=== PATIENT | female | born 1970 | race Caucasian/White ===

== ENCOUNTER 2016-11-17 18:20 | Emergency (ER) | payer OTHER ==
[~2016-11-17] VITALS: Ht 160 cm; Wt 44.5 kg
--- NOTE | ~2016-11-17 | CR72 ---
[facility] A Service of [facility] RADIOLOGY TEXT RESULTS PATIENT: ARASH LEE LOCATION: [facility] : 74 UNIT #: [id number] AGE: [address]: Foreign Small MD SEX: F ORDER DR: [id number] [facility] [address] [place], [place] [address] [id number] E MR#: [id number] #: [id number] NAME: ARASH LEE : 1970 SEX: F STUDY DATE/TIME: 11/17/2016 18:47 UNIT: [facility] ROOM: STUDY DESCRIPTION: CR Chest Single View Portable Attending Physician: Foreign Small M.D. Ordering Physician: Foreign Small M.D. Primary Care Physician: Primary Care Physician No MEDICAL IMAGING REPORT This report is preliminary unless electronic signature is present EXAM Single view chest INDICATIONS Shortness of air for 1 day. FINDINGS Single AP view of the chest without comparison. The heart mediastinal contours normal. Lungs are clear. No pleural effusion. IMPRESSION No acute findings. Dictated by... Yandel Jerez M.D. THIS IS AN ELECTRONICALLY VERIFIED REPORT Yandel Jerez M.D. at 11/18/2016 8:13 AM ANUSHA/fleipe TD: 11/18/2016 07:37 JOB #: [id number] MEDICAL IMAGING REPORT Page 1 of 1 COPY
--- NOTE | ~2016-11-17 | EKG ---
PATIENT: ARASH LEE UNIT #: [id number] Ventricular Rate: 93 BPM Atrial Rate: 93 BPM P-R Interval: 136 ms QRS Duration: 96 ms Q-T Interval: 370 ms QTC Calculation(Bezet): 460 ms P [place]: 61 degrees Calculated R [place]: 57 degrees Calculated T [place]: 49 degrees Diagnosis Line: Normal sinus rhythm Diagnosis Line: Incomplete right bundle branch block Diagnosis Line: Borderline ECG Diagnosis Line: No previous ECGs available Diagnosis Line: Confirmed by ILENE KOHLER MD ([id number]) on Diagnosis Line: 11/18/2016 8:07:26 AM INTERPRETING MD: EDITA ROLAND
[2016-11-17 18:56] LABS: BASOPHIL% 0.6 % (0-2.5); EOSINOPHIL# 0.1 X10e3 (0-0.7); EOSINOPHIL% 0.8 % (0.0-7.0); HEMATOCRIT 38.6 % (35.0-45.0); HEMOGLOBIN 12.7 gm/dL (12.0-16.0); LYMPHOCYTE# 2.2 X10e3 (1.0-3.5); LYMPHOCYTE% 31.2 % (17.0-45.0); MEAN CELL VOLUME 94.1 FL (83-96); MEAN CORPUSCULAR HEMOGLOBIN 31.1 PG (28-34); MEAN PLATELET VOLUME 7.9 FL (6.5-11.5); MONOCYTE# 0.9 X10e3 (0-1.0); MONOCYTE% 12.6 % (3.0-12.0); NEUTROPHIL# 3.9 X10e3 (1.5-7.1); NEUTROPHIL% 54.8 % (40-75); PLATELET COUNT 262 X10e3 (140-420); RED BLOOD COUNT 4.09 X10e (3.90-5.30); RED CELL DISTRIBUTION WIDTH 13.3 % (11.0-15.5); WHITE BLOOD COUNT 7.1 X10e3 (4.0-10.5)
[2016-11-17 18:59] LABS: DIFF IND NO
[2016-11-17 19:20] LABS: ALBUMIN SERUM 4.2 g/dL (3.5-5.0); ALKALINE PHOSPHATASE 65 U/L (32-92); ALT (SGPT) 27 U/L (10-40); AST (SGOT) 41 U/L (10-42); BILIRUBIN,TOTAL 0.1 mg/dL (0.2-2.0); BLOOD UREA NITROGEN 6 mg/dL (9-23); BUN/CREATININE RATIO 8.57; CALCIUM SERUM 8.8 mg/dL (8.4-10.2); CARBON DIOXIDE 28 mmol/L (22-31); CHLORIDE 105 mmol/L (100-111); CREATININE SERUM 0.7 mg/dL (0.6-1.4); GLOM FILT RATE Estimated 106.1 mL/min (>60); GLUCOSE FASTING 93 mg/dL (70-110); POTASSIUM 3.8 mmol/L (3.5-5.1); PROTEIN TOTAL SERUM 7.8 g/dL (6.0-8.3); SODIUM 140 mmol/L (135-145)
[2016-11-17 19:25] LABS: BILIRUBIN, DIRECT <0.1 mg/dL (0.0-0.2)
[2016-11-17 19:59] LABS: POC - CKMB <1.0 ng/mL (0.0-7.9); POC - TROPONIN <0.05 ng/mL (<=0.05)
== END 2016-11-17 20:14 | disposition home or self-care (01) ==
LOC: CED 18:20
PROVIDERS: Emergency Medicine
DX: R09.1 Pleurisy (principal); R56.9 Unspecified convulsions; F17.200 Nicotine dependence, unspecified, uncomplicated; Z86.73 Personal history of transient ischemic attack (TIA), and cerebral infarction without residual deficits; Z98.890 Other specified postprocedural states
CPT/HCPCS: 36415; 71010; 80048; 80076; 82553; 84484; 85025; 85379; 93005; 99285

== ENCOUNTER 2016-11-19 05:27 | Observation (INO) | payer OTHER ==
[~2016-11-19] VITALS: Ht 160 cm; Wt 47.2 kg
--- NOTE | ~2016-11-19 | DS ---
Unit #: [id number] #: [id number] Patient: ARASH LEE [id number] [address] [address] [id number] I MR#: [id number] NAME: ARASH LEE ROOM: 57 Age: 45 Sex: F Admission Date: 11/19/2016 : 1970 Discharge Date: 11/20/2016 Attending Physician: Nellie Malhotra M.D. Primary Care Physician: Primary Care Physician No DISCHARGE SUMMARY PRIMARY CARE PHYSICIAN None. PRINCIPAL DIAGNOSES 1. Atypical chest pain likely muscular in origin. 2. Left and right lower lobe nodules of undetermined etiology. 3. Hyperglycemia with pending hemoglobin A1c. 4. Transaminitis question steroid induced. 5. Steroid-induced leukocytosis. 6. Underweight. 7. Mild protein malnutrition. 8. Tobaccoism. 9. History of seizure in 07/2016. CONSULTANTS Dr. Krishnan, Pulmonology. PROCEDURES 1. Chest x-ray on 11/19/2016 with blunting of left costophrenic angle. 2. Lower extremity venous Doppler, which was negative for DVT on the left. 3. CT of the chest with contrast on 11/19/2016 with a soft tissue nodule in the posterior lateral left lung base abutting the posterior pleura measuring 1.4 x 1.2 x 1.5 cm. Lungs are otherwise clear. 4. CT angiogram of the chest on 11/19/2016 again without evidence of PE. There was a subpleural nodule in the posterior lateral left lower lobe measuring 1.7 x 0.9 cm and over subpleural nodule in the lateral right lower lobe measuring 2.3 x 0.9 cm, these may be infectious or post inflammatory and both indeterminate. No evidence of adenopathy. CLINICAL HISTORY AND HOSPITAL COURSE Ms. Park is a nice 45-year-old female, who presents to the emergency department with mild shortness of breath and chest pain described as sharp, which she noted after swimming last with her daughter. Due to her shortness of breath, she was seen in the emergency department with a negative workup and discharged home. However, the pain persisted and she still got short of breath and thus she presented to the emergency department. CT scan revealed a left subpleural nodule and she was admitted in observation for evaluation. The patient underwent repeat CT with PE protocol which was negative for PE, but has revealed both right and left nodule . She denies any cough now. Denies any shortness of breath. Denies any fever. She states her pain is significantly improved after some Toradol and she thinks her pain Unit #: [id number] #: [id number] Patient: ARASH LEE might be related to swimming particularly given its presence, more so on the lateral portion of the chest. She does smoke and states she smoked for quite some time. We did discuss tobacco cessation. She denies any fever during hospitalization nor she had any evidence of leukocytosis until after a dose of Solu-Medrol. These nodules may indeed be infectious. I am going to complete a course of antibiotics. I am also going to have Dr. Krishnan evaluate the patient, so the lung nodules can be followed up on an outpatient basis. The patient did have some mild transaminitis again after dosing of steroids. She has also had some hyperglycemia both before and after steroid dosing. Hemoglobin A1c is pending. I am going to repeat CMP in 1 week to follow up the transaminitis which I think might be med effect and/or perhaps infectious in etiology. She did not have any nausea, vomiting, diarrhea, or any abdominal pain. I am awaiting Dr. Krishnan's evaluation, but I anticipate we will discharge home after his evaluation. DISCHARGE CONDITION Stable. DISCHARGE STATUS Discharged to home. DISCHARGE MEDICATIONS Levaquin 750 mg p.o. daily for 1 week, ibuprofen over the counter 2 to 3 tablets p.o. q.8 hours p.r.n. for pain. DISCHARGE INSTRUCTIONS The patient was instructed to refrain from any further tobacco use. She can increase her activity as tolerated. She can return to work tomorrow. FOLLOWUP The patient will follow up with Dr. Krishnan on an outpatient basis for further evaluation of her lung nodules. Get CMP in 1 week with results faxed to my office. Dictated by... Nellie Malhotra M.D. EARL/rafaela TD: 11/23/2016 01:02 JOB #: [id number] DISCHARGE SUMMARY Page 1 of 1 X Nellie Malhotra MD X DISCHARGE SUMMARY
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
--- NOTE | ~2016-11-19 | EKG ---
PATIENT: ARASH LEE UNIT #: [id number] Ventricular Rate: 88 BPM Atrial Rate: 88 BPM P-R Interval: 140 ms QRS Duration: 90 ms Q-T Interval: 374 ms QTC Calculation(Bezet): 452 ms P [place]: 70 degrees Calculated R [place]: 43 degrees Calculated T [place]: 40 degrees Diagnosis Line: Normal sinus rhythm Diagnosis Line: Normal ECG Diagnosis Line: When compared with ECG of 17-NOV-2016 18:42, Diagnosis Line: No significant change was found Diagnosis Line: Confirmed by ILENE KOHLER MD ([id number]) on Diagnosis Line: 11/20/2016 8:28:52 AM INTERPRETING MD: EDITA ROLAND
--- NOTE | ~2016-11-19 | US85 ---
[facility] A Service of [facility] & [facility] RADIOLOGY TEXT RESULTS PATIENT: ARASH LEE LOCATION: [facility] : 74 UNIT #: [id number] AGE: [address]: Lacy Carrington MD SEX: F ORDER DR: [id number] [facility] [address] [place], [place] [address] [id number] I MR#: [id number] Acc #: [id number] NAME: ARASH LEE : 1970 SEX: F STUDY DATE/TIME: 11/19/2016 8:52 [facility] RO[facility] 6[address]21 STUDY DESCRIPTION: US LE Veins Unilat or Ltd Stdy Attending Physician: Lacy Carrington M.D. Ordering Physician: Marychuy Keene P.A.-C. Primary Care Physician: No Primary Care Physician MEDICAL IMAGING REPORT This report is preliminary unless electronic signature is present EXAM Left lower extremity venous Doppler. HISTORY Left calf pain x2 days. TECHNIQUE Venous ultrasound examination of the left lower extremity was performed using grayscale, spectral Doppler and color flow Doppler imaging. FINDINGS The examination is negative. There is no evidence of left lower extremity deep venous thrombus from the groin to the lower calf. Visualized greater saphenous vein is also patent. IMPRESSION Negative examination. No evidence of left lower extremity DVT. Dictated by... Anita Jackson M.D. THIS IS AN ELECTRONICALLY VERIFIED REPORT Anita Jackson M.D. at 11/19/2016 3:54 PM Matthew TD: 11/19/2016 15:09 JOB #: [id number] MEDICAL IMAGING REPORT Page 1 of 1 COPY
--- NOTE | ~2016-11-19 | CT16 ---
[facility] A Service of [facility] & [facility] RADIOLOGY TEXT RESULTS PATIENT: ARASH LEE LOCATION: [facility] 575-01 : [birth year] UNIT #: [id number] AGE: [address]: Nellie Malhotra MD SEX: F ORDER DR: [id number] [facility] [address] [place], [place] [address] [id number] I MR#: [id number] Acc #: [id number] NAME: ARASH LEE : 1970 SEX: F STUDY DATE/TIME: 11/19/2016 14:42 UNIT: [facility] ROOM: [facility] STUDY DESCRIPTION: CT Angio Chest for PE Attending Physician: Lacy Carrington M.D. Ordering Physician: Lacy Carrington M.D. Primary Care Physician: No Primary Care Physician MEDICAL IMAGING REPORT This report is preliminary unless electronic signature is present EXAM CT angiogram chest with IV contrast HISTORY Shortness of air. Chest pain for 2 days. TECHNIQUE IV contrast and CT angiogram chest was performed with 3-D reconstructions. The exam is compared to conventional CT chest with IV contrast earlier today. This CT exam was performed with one or more of the following radiation dose reduction techniques: automatic exposure control, adjustment of mA and/or kV according to patient size, and iterative reconstruction. FINDINGS There is no evidence of pulmonary embolus. Normal-caliber pulmonary arteries. Normal caliber thoracic aorta. No adenopathy. There is an oval peripheral subpleural patchy nodule in the posterolateral left lower lobe measuring 0.9 cm x 1.7 cm, and a similar oval subpleural patchy nodule in the inferolateral right lower lobe measuring 2.37 x 0.9 cm, very similar to findings on CT earlier today. These could be infectious or inflammatory or postinflammatory. There is also mild linear atelectasis in the posterior lower lobes. Consider followup CT chest in 3 months to evaluate for stability or resolution. No pleural effusions. IMPRESSION 1. No evidence of pulmonary embolus. 2. Oval subpleural nodule in the posterolateral left lower lobe measures 1.7 cm x 0.9 cm and oval subpleural nodule in the lateral right lower lobe measures 2.3 cm x 0.9 cm. These could be infectious or inflammatory or postinflammatory but are technically STS. [facility] A Service of [facility] RADIOLOGY TEXT RESULTS PATIENT: ARASH LEE LOCATION: [facility] 575-01 : 74 UNIT #: [id number] AGE: [address]: Nellie Malhotra MD SEX: F ORDER DR: indeterminate. Followup chest CT in 3 months is recommended to evaluate for stability or resolution. 3. Mild linear atelectasis or scarring in the posterior lower lobes. 4. No adenopathy. Dictated by... Obed Morrison M.D. THIS IS AN ELECTRONICALLY VERIFIED REPORT Obed Morrison M.D. at 11/20/2016 11:30 PM BENTON/claudia TD: 11/19/2016 23:23 JOB #: [id number] MEDICAL IMAGING REPORT Page 1 of 1 COPY
--- NOTE | ~2016-11-19 | CR63 ---
[facility] A Service of [facility] & [facility] RADIOLOGY TEXT RESULTS PATIENT: ARASH LEE LOCATION: [facility] : 74 UNIT #: [id number] AGE: [address]: Lacy Carrington MD SEX: F ORDER DR: [id number] [facility] [address]. [place], [place] [address] [id number] I MR#: [id number] Acc #: [id number] NAME: ARASH LEE : 1970 SEX: F STUDY DATE/TIME: 11/19/2016 7:55 [facility] ROOM: 01952 STUDY DESCRIPTION: CR Chest 2 View Attending Physician: Lacy Carrington M.D. Ordering Physician: Bay Us M.D. Primary Care Physician: Primary Care Physician No MEDICAL IMAGING REPORT This report is preliminary unless electronic signature is present EXAM Chest x-ray 11/19 INDICATIONS Shortness of air over the last 2 days. History of smoking. FINDINGS Two views of the chest are compared with 11/17/2016. Lungs are clear. Cardiac and mediastinal contours are normal. No pneumothorax is seen. Blunting of the left costophrenic angle may reflect a trace amount of left-side pleural fluid. IMPRESSION Blunting of the left costophrenic angle suggests a trace amount of left pleural fluid. Chest x-ray is otherwise negative. Dictated by... Mike Valero Jr., M.D. THIS IS AN ELECTRONICALLY VERIFIED REPORT Mike Valero Jr., M.D. at 11/19/2016 3:49 PM STARLA/felipe TD: 11/19/2016 14:15 JOB #: [id number] MEDICAL IMAGING REPORT Page 1 of 1 COPY
--- NOTE | ~2016-11-19 | CT55 ---
[facility] A Service of [facility] RADIOLOGY TEXT RESULTS PATIENT: ARASH LEE LOCATION: [facility] : 74 UNIT #: [id number] AGE: [address]: Marychuy Keene SEX: F ORDER DR: [id number] [facility] [address] [place], [place] [address] [id number] E MR#: [id number] Acc #: [id number] NAME: ARASH LEE : 1970 SEX: F STUDY DATE/TIME: 11/19/2016 09:56 UNIT: [facility] ROOM: STUDY DESCRIPTION: CT Chest W Con Attending Physician: Marychuy Keene P.A.-C. Ordering Physician: Marychuy Keene P.A.-C. Primary Care Physician: Primary Care Physician No MEDICAL IMAGING REPORT This report is preliminary unless electronic signature is present EXAM CT chest with contrast, 11/19/2016 09:56 hours HISTORY 45-year-old woman with shortness of air and bilateral rib pain for 2 days. No reported injury. COMPARISON Chest film, 11/19/[address] images were obtained from the thoracic inlet through the adrenal glands. Sagittal and coronal reconstructions were performed. Contrast was Isovue-370, 70 mL IV. Total exam DLP 357 mGy-cm. This CT exam was performed with one or more of the following radiation dose reduction techniques: automatic exposure control, adjustment of mA and/or kV according to patient size, and iterative reconstruction. FINDINGS Images through the thoracic inlet demonstrate no thyroid lesion or lymphadenopathy. Images through the chest demonstrate well opacified aorta which is normal in caliber. There is no dissection. Pulmonary arteries appear normal in size and are normally opacified centrally. This is not a PE protocol examine and opacification of the peripheral pulmonary arteries is not optimized. There is no mediastinal or hilar adenopathy. There is no pericardial or pleural fluid. The lungs demonstrate a few scattered calcified granulomata. There is a pleural-based nodular density at the left lung base measuring 1.4 x 1.2 cm. It is not clear whether this is primarily a pulmonary nodule abutting the pleura or primarily a pleural nodule. This likely accounts for the STS. [facility] A Service of [facility] RADIOLOGY TEXT RESULTS PATIENT: ARASH LEE LOCATION: [facility] : 74 UNIT #: [id number] AGE: [address]: Marychuy Keene SEX: F ORDER DR: blunting of the left costophrenic angle seen on today's chest x-ray. Differential considerations would include an inflammatory or infectious nodule. Peripheral infarct is felt less likely as is malignancy given the patient's age. Limited views through the upper abdomen demonstrate diffuse fatty change in the liver. The adrenal glands are normal. IMPRESSION There is a soft tissue nodule at the posterolateral left lung base abutting the posterior pleura measuring 1.4 x 1.2 x 1.5 cm. This likely accounts for the blunting of the costophrenic angle seen on chest film. It is not clear whether this is primarily a pulmonary nodule abutting the pleura or primarily a pleural nodule. The more acute angles favor that that this is primarily pulmonary. The lungs are otherwise clear and there is no adenopathy. Differential considerations would include an infectious or post infectious change. Pulmonary infarct or malignancy are felt less likely. The central pulmonary arteries are well opacified with contrast and show no evidence of emboli. This is not a PE protocol exam and opacification of the peripheral vessels is not optimized. Suggest clinical correlation. Suggest short-interval followup CT to reassess this area in 3-4 months. No contrast would be required in reassessment of this nodule. STAT * RESULT Dictated by... Yolande Corona M.D. THIS IS AN ELECTRONICALLY VERIFIED REPORT Yolande Corona M.D. at 11/19/2016 12:03 PM Rock TD: 11/19/2016 10:39 JOB #: [id number] MEDICAL IMAGING REPORT Page 1 of 1 COPY
--- NOTE | ~2016-11-19 | A ---
[facility] DATE: 11/20/16 Patient: ARASH LEE Physician: SHIRA Address: [address] Room/Bed: [address] [place] [address], Zip: [place] [address] Admit Date: 11/19/16 Date of : [birth year] Height: 5 3 Weight: 104 47.2 NUTRITIONAL ASSESSMENT: REASON: Low BMI 45 y/o female admitted for long nodule, SOA PMH: seizure, pulmonary embolism Anthropometrics: ht: 5'3" wt: 104# (47 kg) BMI 18.4, 90%IBW Labs: Glu 133, Alb 3.4, AST 392, ALT 286 Meds: NaCl, zithromax, zofran I/O & Bowel function: 1700/503 Skin Integrity: no issues, no edema. Estimated Nutrition Needs: Increased 2' low BMI Assessment: Chart reviewed, events noted. Pt seen for low BMI. RD sourcing intern visited pt at bedside. Pt reports current weight of 104# as her normal weight, and reports no recent weight loss. Pt says she has a good appetite. 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 She reports drinking protein shakes at home to increase her protein and calorie intake. Pt was agreeable to Magic Cup with dinner. RD sourcing intern encouraged adequate PO intake of meals and supplements. No questions at this time. RD will continue to follow. Dx: Underweight r/t lifestyle AEB pt report, low BMI Intervention: 1. Regular diet 2. Magic Cup with dinner Monitoring, Evaluation and Goals: 1. Weight; prevent unintentional weight loss, promote healthy weight gain and maintenance 2. Intake; consume >50% of all meals and supplements Recommendations: 1. Continue current regular diet + Magic Cup with dinner. 2. Encourage adequate PO intake. Pt is mildly compromised nutritionally [facility] Therapy DATE: 11/20/16 Patient: ARASH LEE Physician: SHIRA Address: [address] Room/Bed: [address] [place] [address], Zip: [place] [address] Admit Date: 11/19/16 Date of : [birth year] Height: 5 3 Weight: 104 47.2 Respectfully, KYLE ROSENTHAL, internal grinder Betzaida Marrufo MS, RD, LD [employer] [facility] cc: client file
--- NOTE | ~2016-11-19 | HP ---
Unit #: [id number] #: [id number] Patient: ARASH LEE [id number] [address] [place], [place] [address] [id number] MR#: [id number] NAME: ARASH LEE ROOM: Age: 45 Sex: F Admission Date: 11/19/2016 : 1970 Attending Physician: Marychuy Keene P.A.-C. Primary Care Physician: No Primary Care Physician HISTORY AND PHYSICAL CHIEF COMPLAINT Short of air. HISTORY OF PRESENT ILLNESS The patient is a 45-year-old female with past medical history of seizure who presented to the emergency department for evaluation of the above. The patient states that she was in her usual state of health until November 17, 2016 when she developed shortness of breath and chest pain. She states that she had been swimming with her daughter. She then experienced pain in the lower chest that she describes as "sharp." She had associated shortness of breath. She denies any fever. No cough or cold symptoms. She presented to the emergency department for further evaluation. On November 17, 2016 a D-dimer was done and negative. EKG and cardiac enzymes were done and also negative. She was discharged home. It appears that she also had a chest x-ray that showed no acute findings. The pain persisted. She states that the shortness of breath woke her from sleep today around 3 a.m. She presented to the emergency department for repeat evaluation. CT of the chest with contrast (not PE protocol) was done and showed a soft tissue nodule at the left lung base concerning for infectious or postinfectious change versus infarct versus malignancy. She was given Rocephin in the emergency department. She is being admitted to [facility] for evaluation and further treatment. PAST MEDICAL HISTORY 1. Seizure. The patient states that she had a seizure in July of 2016. She was seen in the emergency department at [facility] and followed up with the neurologist. She is not on any antiepileptic medication. 2. History of pulmonary embolism around 20 years ago. She states that she was on Coumadin. PAST SURGICAL HISTORY 1. Tonsillectomy. 2. . 3. Myringotomy tubes. SOCIAL HISTORY The patient lives with her 2 children. She works at [employer]. She smokes 6-7 cigarettes daily. She reports occasional alcohol use. She denies illicit drug use. Unit #: [id number] #: [id number] Patient: ARASH LEE FAMILY HISTORY Notable to her mother having hypertension. Her dad had seizures. ALLERGIES No known allergies. HOME MEDICATIONS None. REVIEW OF SYSTEMS A complete review of systems is negative except as indicated in the HPI. The patient states that she has had 3 bouts of nonbloody emesis today, as well as 1 loose stool. She denies any abdominal pain. PHYSICAL EXAMINATION VITAL SIGNS: Temperature is 97.8, pulse 92, respirations 16, blood pressure 119/77, oxygen saturation 100% on room air. GENERAL: The patient is a female who is awake and alert, in no acute distress. HEENT: The head is atraumatic. Mucous membranes are moist. NECK: Supple. Trachea is midline. CARDIOVASCULAR: Regular rate and rhythm. RESPIRATORY: Lungs are clear to auscultation bilaterally with no increased work of breathing. ABDOMEN: Soft, nontender with bowel sounds present in all 4 quadrants. EXTREMITIES: Extremities are nontender with no pedal edema. NEUROLOGIC: The patient is awake and alert. She follows commands. PSYCHIATRIC: Mood and affect are normal. The patient is cooperative. SKIN: Skin of examined areas is warm and dry. DIAGNOSTIC TESTS CARDIOVASCULAR: EKG shows normal sinus rhythm with a rate of 88 beats per minute. IMAGING: CT of the chest with contrast shows a nodule at the posterolateral left lung base concerning for infectious versus postinfectious versus pulmonary infarct or malignancy. Chest x-ray from the shows no acute findings. Left lower extremity venous Doppler was negative for DVT. LABORATORY: Complete blood count from today is completely normal. Troponin is less than 0.05. Comprehensive metabolic panel notable for sodium of 132, glucose 176, AST 56. CPK is 33. ASSESSMENT 1. The patient is a 45-year-old female with lung nodule. The patient received Rocephin in the emergency department for possible infectious etiology. 2. Chest pain. The patient states that the pain is similar to when she had a pulmonary embolus in the past. D-dimer was negative 2 days ago. 3. Hyperglycemia. The patient denies a history of diabetes. Glucose was 176 today on comprehensive metabolic panel. 4. History of PE, previously on Coumadin. 5. History of seizure, not on any antiepileptic medication. 6. Tobacco abuse. Unit #: [id number] #: [id number] Patient: ARASH LEE PLAN 1. Admit for observation to intermediate level. 2. Advance to a regular diet as tolerated. 3. Normal saline at 75 mL an hour. 4. Zofran p.r.n. 5. Toradol p.r.n. 6. CT of the chest PE protocol. 7. Supplemental oxygen. 8. Rocephin and azithromycin for possible pneumonia pending further workup. 9. DuoNeb p.r.n. 10. Serial cardiac enzymes. 11. Hemoglobin A1C. 12. Repeat labs in the morning. 13. Additional workup and consultants based on the above. Dictated by Praveen Ferrera/chantel TD: 11/19/2016 14:08 JOB #: [id number] HISTORY AND PHYSICAL Page 1 of 1 X Lacy Carrington MD X HISTORY AND PHYSICAL
[2016-11-19 07:46] LABS: BASOPHIL% 0.3 % (0-2.5); EOSINOPHIL# 0.1 X10e3 (0-0.7); EOSINOPHIL% 0.6 % (0.0-7.0); HEMATOCRIT 39.3 % (35.0-45.0); HEMOGLOBIN 12.9 gm/dL (12.0-16.0); LYMPHOCYTE# 2.6 X10e3 (1.0-3.5); MEAN CELL VOLUME 95.6 FL (83-96); MEAN CORPUSCULAR HEMOGLOBIN 31.3 PG (28-34); MEAN CORPUSCULAR HGB CONC 32.8 g/dL (30-36); MEAN PLATELET VOLUME 8.3 FL (6.5-11.5); MONOCYTE# 1.2 X10e3 (0-1.0); MONOCYTE% 13.5 % (3.0-12.0); NEUTROPHIL# 5.3 X10e3 (1.5-7.1); NEUTROPHIL% 57.6 % (40-75); PLATELET COUNT 251 X10e3 (140-420); RED BLOOD COUNT 4.11 X10e (3.90-5.30); RED CELL DISTRIBUTION WIDTH 13.5 % (11.0-15.5); WHITE BLOOD COUNT 9.2 X10e3 (4.0-10.5)
[2016-11-19 07:49] LABS: DIFF IND NO
[2016-11-19 08:02] LABS: POC - CKMB <1.0 ng/mL (0.0-7.9); POC - TROPONIN <0.05 ng/mL (<=0.05)
[2016-11-19 08:08] LABS: BILIRUBIN,TOTAL 0.7 mg/dL (0.2-2.0); BUN/CREATININE RATIO 18.33; CREATININE SERUM 0.6 mg/dL (0.6-1.4); GLOM FILT RATE Estimated 111.6 mL/min (>60); POTASSIUM 4.5 mmol/L (3.5-5.1); PROTEIN TOTAL SERUM 7.3 g/dL (6.0-8.3)
[2016-11-19 08:22] LABS: BILIRUBIN, DIRECT 0.1 mg/dL (0.0-0.2); BILIRUBIN,INDIRECT 0.7 mg/dL (0.0-0.9); BILIRUBIN,TOTAL 0.8 mg/dL (0.2-2.0); PROTEIN TOTAL SERUM 7.2 g/dL (6.0-8.3)
[2016-11-19 10:05] LABS: POC - CKMB <1.0 ng/mL (0.0-7.9); POC - TROPONIN <0.05 ng/mL (<=0.05)
[2016-11-19 15:46] LABS: CK TOTAL 31 IU/L (26-140)
[2016-11-19] MEDS ORDERED: NO MEDICATIONS (17:05)
[2016-11-19 21:30] LABS: CK TOTAL 21 IU/L (26-140)
[2016-11-20 05:55] LABS: HEMATOCRIT 35.6 % (35.0-45.0); HEMOGLOBIN 11.5 gm/dL (12.0-16.0); MEAN CELL VOLUME 95.7 FL (83-96); MEAN CORPUSCULAR HEMOGLOBIN 30.8 PG (28-34); MEAN CORPUSCULAR HGB CONC 32.2 g/dL (30-36); RED BLOOD COUNT 3.72 X10e (3.90-5.30); RED CELL DISTRIBUTION WIDTH 13.2 % (11.0-15.5)
[2016-11-20 05:57] LABS: WHITE BLOOD COUNT 16.4 X10e3 (4.0-10.5)
[2016-11-20 06:25] LABS: ALBUMIN SERUM 3.4 g/dL (3.5-5.0); BILIRUBIN,TOTAL 0.6 mg/dL (0.2-2.0); CALCIUM SERUM 8.7 mg/dL (8.4-10.2); CREATININE SERUM 0.6 mg/dL (0.6-1.4); GLOM FILT RATE Estimated 111.6 mL/min (>60); POTASSIUM 3.6 mmol/L (3.5-5.1); PROTEIN TOTAL SERUM 6.3 g/dL (6.0-8.3)
[2016-11-20] MEDS ORDERED: LEVAQUIN750 MG PO (16:58)
[2016-11-20] MEDS ORDERED: ADVIL200 M1 PO (17:00)
== END 2016-11-20 18:44 | disposition home or self-care (01) ==
LOC: CED 05:27 → C5C 12:35 → CEDOF 12:35 → CED 14:10 → CEDOF 14:10 → C5C 15:43
PROVIDERS: Emergency Medicine; Family Medicine; Physician Assistant
DX: R07.89 Other chest pain (principal); R91.8 Other nonspecific abnormal finding of lung field; J98.4 Other disorders of lung; R94.5 Abnormal results of liver function studies; R73.9 Hyperglycemia, unspecified; R74.0 Nonspecific elevation of levels of transaminase and lactic acid dehydrogenase [LDH]; T38.0X5A Adverse effect of glucocorticoids and synthetic analogues, initial encounter; D72.829 Elevated white blood cell count, unspecified; R63.6 Underweight; E46 Unspecified protein-calorie malnutrition; Z86.711 Personal history of pulmonary embolism; F17.210 Nicotine dependence, cigarettes, uncomplicated; Z82.49 Family history of ischemic heart disease and other diseases of the circulatory system; Z84.89 Family history of other specified conditions; Z98.890 Other specified postprocedural states; Z87.898 Personal history of other specified conditions
CPT/HCPCS: 36415; 71020; 71260; 71275; 80053; 80076; 82550; 82553; 82947; 83036; 83690; 84484; 85025; 85027; 93005; 93971; 94760; 96361; 96374; 96375; 96376; 99285; G0378; J0456; J0696; J1885; J2405; J2550; J2930; Q9967